=== PATIENT | male | born 1990 | race Caucasian/White ===

== ENCOUNTER 2020-12-02 12:59 | Emergency (ER) | payer OTHER ==
[~2020-12-02 12:59] MED LIST: IBUPROFEN600 MG PO
== END 2020-12-02 13:42 | disposition left against medical advice (07) ==
LOC: ER1 12:59
DX: Z53.21 Procedure and treatment not carried out due to patient leaving prior to being seen by health care provider (principal)

== ENCOUNTER 2020-12-08 11:42 | Emergency (ER) | payer OTHER ==
[2020-12-08 12:36] LABS: RED BLOOD COUNT 5.12 M/UL (4.20-5.50); WHITE BLOOD COUNT 11.8 K/UL (4.5-11.0)
[2020-12-08 12:56] LABS: BUN/CREATININE RATIO 14 (0-10)
== END 2020-12-08 14:55 | disposition left against medical advice (07) ==
LOC: ER1 11:42
PROVIDERS: Physician Assistant
DX: R10.84 Generalized abdominal pain (principal); E87.6 Hypokalemia; F17.210 Nicotine dependence, cigarettes, uncomplicated; Z90.89 Acquired absence of other organs
CPT/HCPCS: 80053; 80307; 81001; 83690; 85025; 96374; 96375; 99284; G0480; J1885; J2060; J2405

== ENCOUNTER 2021-10-18 13:25 | Emergency (ER) | payer OTHER ==
[2021-10-18 14:23] LABS: HEMOGLOBIN 14.9 gm/dl (14.0-17.5); RED BLOOD COUNT 4.87 M/UL (4.20-5.50); WHITE BLOOD COUNT 11.2 K/UL (4.5-11.0)
[2021-10-18 14:44] LABS: BUN/CREATININE RATIO 8 (0-10)
== END 2021-10-18 14:35 | disposition left against medical advice (07) ==
LOC: ER1 13:25
PROVIDERS: Physician Assistant Medical
DX: R11.2 Nausea with vomiting, unspecified (principal); R10.9 Unspecified abdominal pain
CPT/HCPCS: 80053; 81001; 83690; 85025; 99283

== ENCOUNTER 2021-10-18 15:47 | Emergency (ER) | payer SELFPAY | END 2021-10-18 16:30 | disposition left against medical advice (07) | LOC: ER1 15:47 | DX: Z53.21 Procedure and treatment not carried out due to patient leaving prior to being seen by health care provider (principal) ==